=== PATIENT | female | born 1965 | race Caucasian/White ===

== ENCOUNTER 2020-03-10 16:17 | Outpatient (CLI) | payer OTHER, SELFPAY ==
--- NOTE | ~2020-03-10 | MM_ITS ---
EXAMINATION: MM scrn tony implant BI w ashley HISTORY: Screening mammogram TECHNIQUE: Craniocaudal and mediolateral oblique 3-D tomosynthesis images with implant displacement a nd synthetic 2-D images were generated. Craniocaudal and mediolateral oblique views of the breasts wi thout implant displacement were obtained using full field digital mammography. CAD analysis was submi tted and interpreted. COMPARISON: Comparison to multiple prior studies sequentially, with oldest reviewed study dated 02/24. BREAST PARENCHYMAL COMPOSITION: There are scattered areas of fibroglandular density. FINDINGS: There are subpectoral silicone implants. There is no evidence of suspicious mass, calcifica tion, or architectural distortion to suggest malignancy in either breast. There has been no suspiciou s interval change. IMPRESSION: 1. No mammographic evidence of malignancy. 2. Recommend routine screening mammography in one year. BI-RADS Category 1: Negative Reviewed, dictated and finalized at location A.
== END 2020-03-10 16:18 | disposition home or self-care (01) ==
PROVIDERS: PCP Internal Medicine; Visit Provider Obstetrics & Gynecology Gynecology
DX: Z12.31 Encounter for screening mammogram for malignant neoplasm of breast (principal)
CPT/HCPCS: 77063; 77067

== ENCOUNTER → 2020-05-13 13:00 | Outpatient (CLI) | payer OTHER, SELFPAY ==
--- NOTE | ~2020-05-13 | MR_ITS ---
EXAMINATION: MR lumbar spine wo/w con DATE: 05/13/2020 13:51 INDICATION: Worsening chronic low back pain TECHNIQUE: Magnetic resonance imaging (MRI) of the lumbar spine was performed without intravenous con trast. Sequences included sagittal T2-weighted FSE, sagittal T2-weighted FS FSE, sagittal T1-weighted FSE, and axial T2-weighted FSE. COMPARISON: CT abdomen and pelvis dated 11/01/2017 FINDINGS: 1 mm retrolisthesis L2 on L3 and 2 mm retrolisthesis L3 on L4. There is a chronic Schmorl's node latonia g the posterior aspect of the inferior endplate of L1 with 3 mm associated retropulsion of the inferi or aspect of the posterior wall. A few additional smaller Schmorl's nodes in the lower thoracic and u pper lumbar spine. Vertebral body heights are normal. No acute fracture. Heterogeneous pattern of mix ed red and yellow marrow signal. More discrete T1 hyperintense hemangioma at L2. Moderate disc height loss at L1-L2. Mild disc height loss at L2-L3 through L5-S1. Annular fissure at L5-S1. The conus med ullaris terminates at L1-L2. There is normal signal in the caudal spinal cord. 2.3 cm T2 hyperintense nonenhancing right renal cyst. Paravertebral soft tissues are unremarkable. No abnormally enhancing lesions identified. The following disc levels are specifically discussed: T12-L1: Disc is minimally bulging. There is no facet joint osteoarthritis. There is no neural foramin al stenosis. There is no central canal stenosis. L1-L2: Disc is bulging along with the 3 mm retropulsion along the inferior endplate of L1. There is n ormal bilateral facet joint osteoarthritis. There is no neural foraminal stenosis. There is mild cent ral canal stenosis. L2-L3: Disc is bulging. There is no facet joint osteoarthritis. There is no neural foraminal stenosis . There is mild central canal stenosis. L3-L4: Disc is bulging. There is mild bilateral facet joint osteoarthritis. There is mild bilateral n eural foraminal stenosis. There is minimal central canal stenosis. L4-L5: Disc is minimally bulging. There is minimal left and mild to moderate right facet joint osteoa rthritis. There is mild right and minimal left neural foraminal stenosis. There is no central canal s tenosis. L5-S1: Near fissure and minimal right subarticular disc bulge. There is mild bilateral facet joint os teoarthritis. There is no neural foraminal stenosis. There is no central canal stenosis. IMPRESSION: 1. Mild to moderate lumbar spondylosis. Reviewed, dictated and finalized at location A. SETTLEMENT CLERK
[2020-05-13 13:25] LABS: Estimated Glomerular Filt Rate 57
== END ==
PROVIDERS: PCP Internal Medicine; Visit Provider Chiropractor
DX: M43.17 Spondylolisthesis, lumbosacral region (principal); N28.1 Cyst of kidney, acquired; M51.45 Schmorl's nodes, thoracolumbar region; M48.07 Spinal stenosis, lumbosacral region
CPT/HCPCS: 72158; A9577

== ENCOUNTER → 2020-07-24 14:17 | Outpatient (CLI) | payer BC, SELFPAY ==
--- NOTE | ~2020-07-24 | CT_ITS ---
EXAMINATION: CT soft tissue neck wo con EXAM DATE: 07/24/2020 14:36 INDICATION: Right anterior pulsating neck pain. TECHNIQUE: Spiral CT of the neck was performed without contrast. Axial, coronal and sagittal images were reviewed. The dose-length product (DLP) for this examination was 361.20 mGy-cm. The exposure was tailored according to patient size (auto mA exposure control), and iterative reconstruction (ASIR ) was used as additional dose reduction technique. There is no prior study for comparison. FINDINGS: Cystic thyroid nodule measuring 1.8 cm x 2.9 cm. The submandibular and parotid glands are symmetric. There is no cervical lymphadenopathy. There are no masses identified. The superior m ediastinum is unremarkable. The airway is unremarkable. Parapharyngeal and pre-glottic fat planes are preserved. Limited evaluation of cervical vessels on this noncontrast study. No carotid aneury sm. The orbits are unremarkable. Visualized sinuses and mastoid air cells are well aerated. Lung apices are clear. There is moderate cervical spondylosis. IMPRESSION: Cystic right thyroid nodule. Consider ultrasound for risk stratification. Reviewed, dictated and finalized at location A. NDANCE SECRETARY IMPRESSION: Cystic right thyroid nodule. Consider ultrasound for risk stratifi cation.
== END ==
PROVIDERS: PCP Internal Medicine; Visit Provider Internal Medicine
DX: M54.2 Cervicalgia (principal); E04.1 Nontoxic single thyroid nodule
CPT/HCPCS: 70490

== ENCOUNTER → 2020-07-29 12:51 | Outpatient (CLI) | payer BC, SELFPAY ==
--- NOTE | ~2020-07-29 | US_ITS ---
EXAMINATION: US thyroid EXAM DATE: 07/29/2020 13:31 INDICATION: E04.1 - Nontoxic single thyroid nodule. TECHNIQUE: Multiple grayscale and Doppler images of the thyroid were obtained (by a technologist who performed the scan) and subsequently reviewed. Individual nodules and recommendations may be reporte d in accordance with TI-RADS system as designated by the 2017 ACR White Paper TI-RADS committee. Dez elation is made to CT neck 07/24/2020. FINDINGS: The right thyroid lobe measures 4.6 x 1.5 x 1.9 cm, the left measuring 4.0 x 0.8 x 1.1 cm. Mildly het erogeneous thyroid echogenicity. There is a nodule in the mid and upper pole of the right thyroid lobe measuring 3.1 x 1.4 x 2.0 cm, s olid (2 points), isoechoic (1 point), wider than tall, smooth well defined margin, without echogenic foci, category TR3 for this nodule. There is a 5 mm left thyroid lobe nodule not likely clinically s ignificant. IMPRESSION: Right thyroid lobe 3 cm solid nodule; recommend ultrasound guided FNA. Reviewed, dictated and finalized at location B. MEDICARE IMPRESSION: Right thyroid lobe 3 cm solid nodule; recommend ultrasound guided F NA.
== END ==
PROVIDERS: PCP Internal Medicine; Visit Provider Internal Medicine
DX: E04.1 Nontoxic single thyroid nodule (principal)
CPT/HCPCS: 76536

== ENCOUNTER 2020-08-05 13:24 | Outpatient (CLI) | payer BC, SELFPAY ==
--- NOTE | ~2020-08-05 | US_ITS ---
EXAMINATION: US FNA w image guidance DATE: 08/05/2020 14:07 INDICATION: Right thyroid nodule. TECHNIQUE: The procedure and its benefits and risks were discussed with the patient. Risks specifically discusse d included bleeding. The patient verbalized understanding of the risks and agreed to proceed. The nec k was prepped and draped in the usual sterile manner. 1% lidocaine was used for local anesthesia. 5 passes were made with a 25G needle into the lesion under ultrasound guidance. There were no immedia te complications. The patient understood to call the ordering physician for results after a week and a half and verbalized that understanding. FINDINGS: Grayscale ultrasound images demonstrate needles advanced into a 3.2 cm nodule in right thyroid lobe f or biopsy. IMPRESSION: 1. Ultrasound-guided fine needle aspiration of a right thyroid nodule. Reviewed, dictated and finalized at location A. X RAY SERVICE TECHNICIAN
== END 2020-08-05 13:25 | disposition home or self-care (01) ==
PROVIDERS: PCP Internal Medicine; Visit Provider Internal Medicine
DX: E04.1 Nontoxic single thyroid nodule (principal)
CPT/HCPCS: 10005; 88173; 88305

== ENCOUNTER → 2020-10-07 11:55 | Outpatient (CLI) | payer BC, SELFPAY ==
--- NOTE | ~2020-10-07 | DEXA_ITS ---
Bone Density Report Name: Margie Rush Age: 55 Sex: Female Ethnicity: White Date of : 1965 Indication: postmenopausal; screening for osteoporosis; parental hip fracture; hysterectomy; Referring Provider: NILAY NGUYEN Study: Bone densitometry was performed. Exam Date: October 07, 2020 Accession number: [id number] Bone Density: Region BMD T-score Z-score Classification AP Spine (L1-L4) 0.846 -1.8 -0.6 Osteopenia Femoral Neck (Left) 0.646 -1.8 -0.7 Osteopenia Total Hip (Left) 0.802 -1.2 -0.3 Osteopenia Femoral Neck (Right) 0.664 -1.7 -0.5 Osteopenia Total Hip (Right) 0.784 -1.3 -0.5 Osteopenia Total Hip Mean 0.793 -1.3 -0.4 Osteopenia World Health Organization criteria for BMD impression classify patients as: Normal (T-score at or above -1.0), Osteopenia (T-score between -1.0 and -2.5), or Osteoporosis (T-score at or below -2.5). 10-year Fracture Risk(1): Major Osteoporotic Fracture 14% Hip Fracture 0.9% Reported Risk Factors: [place] (), Neck BMD=0.646, BMI=20.8, parental fracture (1) FRAX(R) Version 3.08. Fracture probability calculated for an untreated patient. Fracture probability may be lower if the patient has received treatment. Clinical Information Provided by Patient: Parent has had a hip fracture Has the following medical conditions: Hysterectomy Patient maximum height was 66 Menopause Age: 36 Drinks caffeinated beverages Onset of menses at age 13 Number of children 2 Impression: The patient has low bone mass, based on the Total Spine T-score. The patient has an estimated ten-year risk of hip fracture of 0.9% and an estimated ten-year risk of major fracture of 14%, based on the WHO FRAX algorithm. The patient has risk factors, including: parental hip fracture. Discussion: BONE DENSITY IS LOW AT ONE OR MORE SKELETAL SITES. This patient's lowest T-score is low at one or more skeletal sites. It meets the World Health Organization's (WHO) criteria for ?low bone mass? (T-score between -1.0 and -2.5). The patient's 10-year risk of fracture as calculated by FRAX is less than the threshold where pharmacological therapy is recommended by the National Osteoporosis Foundation (NOF). However, all treatment decisions require clinical judgment and consideration of individual patient factors, including patient preferences, comorbidities, previous drug use, risk factors not captured in the FRAX model (e.g., frailty, falls, vitamin D deficiency, increased bone turnover, interval significant decline in bone density) and possible under or overestimation of fracture risk by FRAX. The patient should follow a healthful lifestyle (good nutrition with adequate calcium and vitamin D, and appropriate weight-bearing exercise). Follow-Up: Consider repeating this study in 2 to 3 years to reas
== END ==
PROVIDERS: PCP Internal Medicine; Visit Provider Obstetrics & Gynecology Gynecology
DX: Z78.0 Asymptomatic menopausal state (principal); M85.88 Other specified disorders of bone density and structure, other site; M85.852 Other specified disorders of bone density and structure, left thigh; M85.851 Other specified disorders of bone density and structure, right thigh
CPT/HCPCS: 77080

== ENCOUNTER 2021-05-12 14:49 | Outpatient (CLI) | payer BC, SELFPAY ==
--- NOTE | ~2021-05-12 | MM_ITS ---
EXAMINATION: MM scrn tony implant BI w ashley HISTORY: Screening mammogram TECHNIQUE: Craniocaudal and mediolateral oblique 3-D tomosynthesis images with implant displacement a nd synthetic 2-D images were generated. Craniocaudal and mediolateral oblique views of the breasts wi thout implant displacement were obtained using full field digital mammography. CAD analysis was submi tted and interpreted. COMPARISON: Comparison to multiple prior studies sequentially, with oldest reviewed study dated 12/24. BREAST PARENCHYMAL COMPOSITION: Breast composed of scattered areas of fibroglandular density FINDINGS: There is no evidence of suspicious mass, calcification, or architectural distortion to sugg est malignancy in either breast. There has been no suspicious interval change. IMPRESSION: 1. No mammographic evidence of malignancy. 2. Recommend routine screening mammography in one year. BI-RADS Category 1: Negative Reviewed, dictated and finalized at location A. WILL REPRESENTATIVE
== END 2021-05-12 14:50 | disposition home or self-care (01) ==
PROVIDERS: PCP Internal Medicine; Visit Provider Obstetrics & Gynecology Gynecology
DX: Z12.31 Encounter for screening mammogram for malignant neoplasm of breast (principal)
CPT/HCPCS: 77063; 77067

== ENCOUNTER → 2022-01-26 12:59 | Outpatient (CLI) | payer BC, SELFPAY ==
--- NOTE | ~2022-01-26 | MR_ITS ---
EXAMINATION: MR lumbar spine wo con DATE: 01/26/2022 13:31 INDICATION: Left-sided low back pain. TECHNIQUE: Magnetic resonance imaging (MRI) of the lumbar spine was performed without intravenous con trast. Sequences included sagittal T2-weighted FSE, sagittal T2-weighted FS FSE, sagittal T1-weighted FSE, and axial T2-weighted FSE. COMPARISON: Lumbar spine MRI 05/13/2010 FINDINGS: There is 3 degrees dextrocurvature of lumbar spine. There are Schmorl's nodes at most level s. There is mildly decreased disc height from L1-L2 through L3-L4. The distal spinal cord signal inte nsity is normal. The conus medullaris is at L1. There is a 2.2 cm cyst in right kidney. The following disc levels are specifically discussed: L1-L2: The disc is bulging. There is no facet joint osteoarthritis. There is no neural foraminal sten osis. There is mild central canal stenosis. L2-L3: The disc is bulging. There is no facet joint osteoarthritis. There is mild bilateral neural fo raminal stenosis. There is mild central canal stenosis. L3-L4: The disc is bulging. There is mild bilateral facet joint osteoarthritis. There is mild bilater al neural foraminal stenosis. There is mild central canal stenosis. L4-L5: The disc is bulging. There is severe right and moderate left facet joint osteoarthritis. There is mild right neural foraminal stenosis. There is no central canal stenosis. L5-S1: The disc does not extend beyond the endplate margin. An annular fissure is noted. There is mil d bilateral facet joint osteoarthritis. There is no neural foraminal stenosis. There is no central ca nal stenosis. IMPRESSION: 1. Mild lumbar spondylosis, stable from 05/13/2020. Reviewed, dictated and finalized at location A.
== END ==
PROVIDERS: PCP Internal Medicine; Visit Provider Orthopaedic Surgery
DX: M47.817 Spondylosis without myelopathy or radiculopathy, lumbosacral region (principal); M48.07 Spinal stenosis, lumbosacral region; N28.1 Cyst of kidney, acquired
CPT/HCPCS: 72148

== ENCOUNTER → 2022-04-26 13:12 | Outpatient (CLI) | payer BC, SELFPAY ==
--- NOTE | ~2022-04-26 | XR_ITS ---
EXAMINATION: XR chest 2V 04/26/2022 13:20 INDICATION: Shortness of breath and cough PROCEDURE: 2 view chest COMPARISON: No prior studies for comparison. FINDINGS: The lungs are clear. The cardiomediastinal silhouette is within normal limits. There are no pleural effusions. There is no pneumothorax suspected. IMPRESSION: 1: NO ACUTE CARDIOPULMONARY DISEASE. Reviewed, dictated and finalized at location B. ICATION INTEGRATOR
== END ==
PROVIDERS: PCP Internal Medicine; Visit Provider Nurse Practitioner
DX: U07.1 COVID-19 (principal); R05.9 Cough, unspecified; R06.02 Shortness of breath
CPT/HCPCS: 71046

== ENCOUNTER 2022-07-06 08:57 | Outpatient (CLI) | payer BC, SELFPAY ==
--- NOTE | ~2022-07-06 | MM_ITS ---
EXAMINATION: MM scrn tony implant BI w ashley HISTORY: Screening mammogram TECHNIQUE: Craniocaudal and mediolateral oblique 3-D tomosynthesis images with implant displacement a nd synthetic 2-D images were generated. Craniocaudal and mediolateral oblique views of the breasts wi thout implant displacement were obtained using full field digital mammography. CAD analysis was submi tted and interpreted. COMPARISON: Comparison to multiple prior studies sequentially, with oldest reviewed study dated 12/24. BREAST PARENCHYMAL COMPOSITION: There are scattered areas of fibroglandular density. FINDINGS: There is no evidence of suspicious mass, calcification, or architectural distortion to sugg est malignancy in either breast. There has been no suspicious interval change. IMPRESSION: 1. No mammographic evidence of malignancy. 2. Recommend routine screening mammography in one year. BI-RADS Category 1: Negative Reviewed, dictated and finalized at location A. TRAINER
== END 2022-07-06 08:58 | disposition home or self-care (01) ==
LOC: ANHIMG 08:59
PROVIDERS: PCP Internal Medicine; Visit Provider Obstetrics & Gynecology Gynecology
DX: Z12.31 Encounter for screening mammogram for malignant neoplasm of breast (principal); Z98.82 Breast implant status
CPT/HCPCS: 77063; 77067

== ENCOUNTER → 2022-10-12 08:53 | Outpatient (CLI) | payer BC, SELFPAY ==
--- NOTE | ~2022-10-12 | DEXA_ITS ---
Bone Density Report Name: JODY HEAD Age: 57 Sex: Female Ethnicity: White Date of : 1965 Indication: osteopenia; monitoring treatment; parental hip fracture; hysterectomy; postmenopausal Referring Provider: NILAY NGUYEN Study: Bone densitometry was performed. Exam Date: October 12, 2022 Accession number: [id number] Bone Density: Region BMD T-score Z-score Classification AP Spine (L1-L4) 0.859 -1.7 -0.3 Osteopenia Femoral Neck (Left) 0.683 -1.5 -0.2 Osteopenia Total Hip (Left) 0.809 -1.1 -0.2 Osteopenia Femoral Neck (Right) 0.675 -1.6 -0.3 Osteopenia Total Hip (Right) 0.788 -1.3 -0.3 Osteopenia Total Hip Mean 0.799 -1.2 -0.3 Osteopenia World Health Organization criteria for BMD impression classify patients as: Normal (T-score at or above -1.0), Osteopenia (T-score between -1.0 and -2.5), or Osteoporosis (T-score at or below -2.5). 10-year Fracture Risk: FRAX not reported because: Treated for osteoporosis Previous Exams: Region Exam Age BMD T-score BMD Change BMD Change Date g/cm2 vs Baseline vs Previous AP Spine(L1-L4) 10/12/2022 57 0.859 -1.7 0.013 0.013 10/07/2020 55 0.846 -1.8 Total Hip(Left) 10/12/2022 57 0.809 -1.1 0.007 0.007 10/07/2020 55 0.802 -1.2 Total Hip(Right) 10/12/2022 57 0.788 -1.3 0.004 0.004 10/07/2020 55 0.784 -1.3 *Denotes significance at 95% confidence level, LSC for AP Spine = 0.022 g/cm2, LSC for Total Hip = 0.027 g/cm2 Clinical Information Provided by Patient: Parent has had a hip fracture Is being treated for osteoporosis Has used the following medications: Fosamax (i.e. alendronate), HRT (i.e. estrogen/hormone therapy), Vitamin D, Calcium Has the following medical conditions: Hysterectomy Patient maximum height was 66 Menopause Age: 36 Drinks caffeinated beverages Onset of menses at age 13 Number of children 2 Impression: The patient has low bone mass, based on the Total Spine T-score. The patient has risk factors, including: parental hip fracture. No significant bone loss was observed. Discussion: PATIENT UNDER TREATMENT WITH NO SIGNIFICANT BMD LOSS SINCE LAST EXAM. In an untreated patient, BMD typically declines with age. A lack of decline or gain is usually a sign that treatment is efficacious and fracture risk is reduced. It is important to ask patients whether they are taking their medications and to encourage continued and appro
== END ==
PROVIDERS: PCP Internal Medicine; Visit Provider Obstetrics & Gynecology Gynecology
DX: Z78.0 Asymptomatic menopausal state (principal); M85.88 Other specified disorders of bone density and structure, other site; M85.852 Other specified disorders of bone density and structure, left thigh; M85.851 Other specified disorders of bone density and structure, right thigh
CPT/HCPCS: 77080

== ENCOUNTER → 2023-04-17 06:57 | Outpatient (CLI) | payer BC, SELFPAY ==
--- NOTE | ~2023-04-17 | MR_ITS ---
MRI of the right ankle Clinical history: Lateral instability Technique: Coronal proton-density and proton-density fat-sat images, axial proton-density and proton- density fat-sat images, and sagittal proton-density and proton-density fat-sat images were acquired. Findings: Syndesmotic ligaments are intact. Anterior and posterior talofibular ligaments, and calcane ofibular ligament are intact. Deltoid ligament is intact. Medial flexor tendons, peroneal tendons, anterior extensor tendons, and Achilles tendon are intact. There is no osteochondral lesion of the talar dome. There is focal subchondral cystic change in the m edial cuneiform. No other bone marrow signal abnormality seen. Remaining joint spaces are unremarkabl e. No joint effusion evident. Plantar fascia is intact. No soft tissue mass or fluid collection seen. There is normal signal in the sinus Tarsi. Impression: No significant abnormality seen. Reviewed, dictated and finalized at [facility]. MA DOCTOR Impression: No significant abnormality seen.
== END ==
PROVIDERS: PCP Family Medicine; Visit Provider Podiatrist Foot & Ankle Surgery
DX: S93.411A Sprain of calcaneofibular ligament of right ankle, initial encounter (principal)
CPT/HCPCS: 73721

== ENCOUNTER 2023-08-01 00:26 | Day surgery (SDC) | payer BC, SELFPAY ==
[2023-05-04 13:10] VITALS: BMI 22.0
[2023-07-06 13:40] VITALS: BMI 21.2
--- NOTE | 2023-07-28 12:46 | SUR.PREOP ---
Patient called regarding upcoming procedure. Reviewed preop instructions, appointment times, and procedure prep.
--- NOTE | 2023-07-31 14:41 | PM.HPGS ---
History of Present Illness History of Present Illness Consent: Risks, benefits, and alternatives have been discussed and questions answered. Patient agrees to proceed with procedure. Chief complaint: neoplasm screening Narrative: Margie Rush is a 58 year old female who is referred for colon cancer screening. Review of Systems Review of Systems: All systems reviewed & are unremarkable except as noted in HPI and below PMFSH Past Medical History Medical History Acute meniscal tear of knee Basal cell carcinoma C. difficile diarrhea Ganglion cyst of wrist Hormone replacement therapy (HRT) Hx of skin cancer, basal cell Osteopenia Postmenopausal Tendinitis of wrist Vitamin D deficiency Surgical History Surgical History H/O wrist surgery H/O: hysterectomy History of foot surgery Hx of shoulder surgery Family History Family History Other Family history of arthritis Family history of malignant neoplasm Family history of seizure disorder Hypertension Social History Social History Smoking status: Never smoker Second hand tobacco smoke exposure: No Alcohol intake: current Alcohol use details: socially Substance use: never Substance use type: does not use Lack of Transportation: No Lack of Food: Never True Current Housing: I Have Housing Concerned About Future Housing: No Difficulty Paying Gas/Electric Bills: No Difficulty Paying for Meds: No Currently Unemployed: No Education: High School Diploma/GED Difficulty w/ Childcare or Family Care: No Living arrangements: with family Spiritual care concerns: No Meds Home Medications and Allergies Home Medications Medication Instructions Recorded Confirmed Type calcium carbonate 500 mg calcium 500 mg PO DAILY 07/31/19 08/01/23 History (1,250 mg) tablet (Calcium 500) estradiol 0.5 mg tablet (Estrace) 0.5 mg PO DAILY 07/31/19 08/01/23 History diclofenac sodium 1 % topical gel 2 g topical QID 90 days #300 grams 03/31/23 08/01/23 Rx lorazepam 0.5 mg tablet 0.5 mg PO QHS PRN sleep #90 tabs 05/01/23 08/01/23 Rx Allergies Allergy/AdvReac Type Severity Reaction Status Date / Time No Known Allergies Allergy Verified 08/01/23 07:12 Exam Resp: Auscultation: clear to auscultation bilaterally Cardio: Rate: regular rate Rhythm: regular rhythm GI: GI Palp: Yes Soft to palpation and No Tenderness to palpation present (GI) Assessment and Plan Assessment and plan (1) Screening for colon cancer: Code(s): Z12.11 - Encounter for screening for malignant neoplasm of colon Status: Acute Assessment and Plan: Colonoscopy with possible biopsy or polypectomy or cautery or injection of substances.
[2023-08-01 07:13] VITALS: BP 106/69; PULSE 85; RESP 16; TEMP 36.1; O2SAT 100
[2023-08-01] MEDS: LACTATED RINGERS 1,000 ML 150 ML IV CONT (07:18)
--- NOTE | 2023-08-01 07:42 | WPDANESEPPF ---
Anes - Initial Pre Proc Eval Procedure: Operation Date: 08/01/23 08:30 Proposed Procedures p Screening Colonoscopy - Chidi Perez MD Date/Time: 08/01/23 07:42 Surgeon: Chidi Perez MD Pre Op Diagnosis: neoplasm screening Patient Data Age: 58 Gender: F Height: 1.65 m Weight: 55.4 kg Last Vital Signs Temp 36.1 C L 08/01/23 07:13 Pulse 85 08/01/23 07:13 Resp 16 08/01/23 07:13 BP 106/69 08/01/23 07:13 Pulse Ox 100 08/01/23 07:13 O2 Del Method Room Air 08/01/23 07:13 Allergies Allergy/AdvReac Type Severity Reaction Status Date / Time No Known Allergies Allergy Verified 08/01/23 07:12 Home Medications Medication Instructions Recorded Confirmed Type calcium carbonate 500 mg calcium 500 mg PO DAILY 07/31/19 08/01/23 History (1,250 mg) tablet (Calcium 500) estradiol 0.5 mg tablet (Estrace) 0.5 mg PO DAILY 07/31/19 08/01/23 History diclofenac sodium 1 % topical gel 2 g topical QID 90 days #300 grams 03/31/23 08/01/23 Rx lorazepam 0.5 mg tablet 0.5 mg PO QHS PRN sleep #90 tabs 05/01/23 08/01/23 Rx Patient hx anesthesia problems: other (hx of veneer damage with intubation) Family hx anesthesia problems: none Results Review: All pre-operative results and documents have been reviewed as part of the pre-operative evaluation. [facility] Past Medical History Medical History Acute meniscal tear of knee Basal cell carcinoma C. difficile diarrhea Ganglion cyst of wrist Hormone replacement therapy (HRT) Hx of skin cancer, basal cell Osteopenia Postmenopausal Tendinitis of wrist Vitamin D deficiency Surgical History Surgical History H/O wrist surgery H/O: hysterectomy History of foot surgery Hx of shoulder surgery Family History Family History Other Family history of arthritis Family history of malignant neoplasm Family history of seizure disorder Hypertension Social History Social History Smoking status: Never smoker Second hand tobacco smoke exposure: No Alcohol intake: current Alcohol use details: socially Substance use: never Substance use type: does not use Lack of Transportation: No Lack of Food: Never True Current Housing: I Have Housing Concerned About Future Housing: No Difficulty Paying Gas/Electric Bills: No Difficulty Paying for Meds: No Currently Unemployed: No Education: High School Diploma/GED Difficulty w/ Childcare or Family Care: No Living arrangements: with family Spiritual care concerns: No Anes - Eval Final PreProcedure Day of Procedure 08/01/23 07:42 Patient weight: normal Heart: regular rate and rhythm Lungs: clear to auscultation Airway: Mallampati scale class II and other (large overbite, veneers) Neurological: alert and oriented Last oral intake: >/= 8 hours ASA classification: II Emergent: no Anesthetic plan: proceed Anesthesia type and monitoring: general GIVS and standard monitoring Results Review: All pre-operative results and documents have been reviewed as part of the pre-operative evaluation. Informed Consent: The patient's anesthetic plan and its attendant risks and benefits were discussed with the patient/family/POA. Questions were solicited and answers provided to the satisfaction of the patient/family/POA.
[2023-08-01] MEDS: SIMETHICONE ORAL SUSPENSION 20 MG/0.3 ML 30 ML BOTTLE 0.6 ML IRRIGATION (08:38)
[2023-08-01 08:48] VITALS: BP 98/64; PULSE 80; RESP 20; O2SAT 100
[2023-08-01 08:58] VITALS: BP 100/59; PULSE 60; RESP 16; O2SAT 100
[2023-08-01 09:08] VITALS: BP 113/58; PULSE 68; RESP 18; O2SAT 100
== END 2023-08-01 09:12 | disposition home or self-care (01) ==
PROVIDERS: PCP Nurse Practitioner; Visit Provider Internal Medicine Gastroenterology
PROC: 0DJD8ZZ Inspection of Lower Intestinal Tract, Via Natural or Artificial Opening Endoscopic (ICD-10-PCS; CPT 45378; principal; 2023-08-01 08:30)
DX: Z12.11 Encounter for screening for malignant neoplasm of colon (principal); K64.8 Other hemorrhoids
CPT/HCPCS: 45378; J2704; J7120

== ENCOUNTER 2023-09-01 09:33 | Outpatient (CLI) | payer BC, SELFPAY ==
--- NOTE | ~2023-09-01 | MR_ITS ---
EXAMINATION: MR lumbar spine wo con DATE: 09/01/2023 13:14 INDICATION: Low back pain, unspecified. TECHNIQUE: Magnetic resonance imaging (MRI) of the lumbar spine was performed without intravenous con trast. Sequences included sagittal T2-weighted FSE, sagittal T2-weighted FS FSE, sagittal T1-weighted FSE, and axial T2-weighted FSE. COMPARISON: Lumbar spine MRI 01/26/2022 FINDINGS: There is 3 degrees dextrocurvature of lumbar spine. Vertebral body heights are normal. Ther e are Schmorl's nodes at multiple levels. There is mildly decreased disc height at L1-L2, L2-L3, and L3-L4. The distal spinal cord signal intensity is normal. The conus medullaris is at L1. There is a 2 .4 cm cyst in right kidney. The following disc levels are specifically discussed: L1-L2: The disc is bulging. There is mild left facet joint osteoarthritis. There is no neural foramin al stenosis. There is mild central canal stenosis. L2-L3: The disc is bulging. There is no facet joint osteoarthritis. There is mild bilateral neural fo raminal stenosis. There is mild central canal stenosis. L3-L4: The disc is bulging. There is severe bilateral facet joint osteoarthritis. There is mild bilat eral neural foraminal stenosis. There is mild central canal stenosis. L4-L5: The disc is bulging and has an annular fissure. There is severe bilateral facet joint osteoart hritis. There is mild bilateral neural foraminal stenosis. There is no central canal stenosis. L5-S1: There is a central protrusion with annular fissure. There is severe bilateral facet joint oste oarthritis. There is no neural foraminal stenosis. There is mild central canal stenosis. IMPRESSION: 1. Mild lumbar spondylosis, stable from 01/26/2022. Reviewed, dictated and finalized at location A.
== END 2023-09-01 09:34 ==
LOC: MICIMG 09:34
PROVIDERS: PCP Nurse Practitioner; Visit Provider Nurse Practitioner
DX: M43.06 Spondylolysis, lumbar region (principal)
CPT/HCPCS: 72148

== ENCOUNTER 2023-09-11 12:47 | Outpatient (CLI) | payer BC, SELFPAY ==
--- NOTE | ~2023-09-11 | MR_ITS ---
EXAMINATION: MR pelvis wo con DATE: 09/11/2023 13:19 INDICATION: Chronic low back pain. Chronic pain in pelvis. TECHNIQUE: Magnetic resonance imaging (MRI) of the pelvis was performed without intravenous contrast. COMPARISON: Left hip MRI 04/30/2019, lumbar spine MRI 09/01/2023 FINDINGS: Bone alignment is normal. No fracture. There is mild lumbar spondylosis. There is mild osteoarthritis of the hips. The gluteus minimus and gluteus medius tendons are normal. The hamstring tendon origins are normal. The iliopsoas tendons are normal. IMPRESSION: 1. Mild osteoarthritis of the hips. 2. Mild lumbar spondylosis. Reviewed, dictated and finalized at location A.
== END 2023-09-11 12:48 ==
PROVIDERS: PCP Nurse Practitioner
DX: M25.562 Pain in left knee (principal); G89.29 Other chronic pain; M16.0 Bilateral primary osteoarthritis of hip; M43.06 Spondylolysis, lumbar region
CPT/HCPCS: 72195

== ENCOUNTER 2023-11-28 14:12 | Outpatient (CLI) | payer BC, SELFPAY ==
--- NOTE | ~2023-11-28 | MM_ITS ---
EXAMINATION: MM scrn tony implant BI w ashley HISTORY: Screening mammogram TECHNIQUE: Craniocaudal and mediolateral oblique 3-D tomosynthesis images with implant displacement a nd synthetic 2-D images were generated. Craniocaudal and mediolateral oblique views of the breasts wi thout implant displacement were obtained using full field digital mammography. CAD analysis was submi tted and interpreted. COMPARISON: 07/06/2022, 05/12/2021 BREAST PARENCHYMAL COMPOSITION: There are scattered areas of fibroglandular density. FINDINGS: There is no evidence of suspicious mass, calcification, or architectural distortion to sugg est malignancy in either breast. There has been no suspicious interval change. IMPRESSION: No mammographic evidence of malignancy. Recommend routine screening mammography in one year. BI-RADS Category 1: Negative Reviewed, dictated and finalized at [facility].
== END 2023-11-28 14:13 | disposition home or self-care (01) ==
LOC: ANHIMG 14:14
PROVIDERS: PCP Nurse Practitioner; Visit Provider Obstetrics & Gynecology Gynecology
DX: Z12.31 Encounter for screening mammogram for malignant neoplasm of breast (principal)
CPT/HCPCS: 77063; 77067

== ENCOUNTER 2024-10-18 12:16 | Outpatient (CLI) | payer BC, SELFPAY ==
--- NOTE | ~2024-10-18 | DEXA_ITS ---
Bone Density Report Name: JODY HEAD Age: 59 Sex: Female Ethnicity: White Date of : 1965 Indication: osteopenia; Referring Provider: NILAY NGUYEN Study: Bone densitometry was performed. Exam Date: October 18, 2024 Accession number: [id number] Bone Density: Region BMD T-score Z-score Classification AP Spine(L1-L4) 0.873 -1.6 -0.1 Osteopenia Femoral Neck (Left) 0.636 -1.9 -0.6 Osteopenia Total Hip (Left) 0.771 -1.4 -0.4 Osteopenia Femoral Neck (Right) 0.668 -1.6 -0.3 Osteopenia Total Hip (Right) 0.765 -1.4 -0.4 Osteopenia Total Hip Mean 0.768 -1.4 -0.4 Osteopenia World Health Organization criteria for BMD impression classify patients as: Normal (T-score at or above -1.0), Osteopenia (T-score between -1.0 and -2.5), or Osteoporosis (T-score at or below -2.5). 10-year Fracture Risk(1): Major Osteoporotic Fracture 8.9% Hip Fracture 1.2% Reported Risk Factors: [place] (), Neck BMD=0.636, BMI=21.4 (1) FRAX(R) Version 3.08. Fracture probability calculated for an untreated patient. Fracture probability may be lower if the patient has received treatment. Previous Exams: -- Region Exam Age BMD T-score BMD Change BMD Change Date g/cm2 vs Baseline vs Previous -- AP Spine (L1-L4) 10/18/2024 59 0.873 -1.6 3.2%* 1.6% 10/12/2022 57 0.859 -1.7 1.6% 1.6% 10/07/2020 55 0.846 -1.8 Total Hip(Left) 10/18/2024 59 0.771 -1.4 -3.8%* -4.7%* 10/12/2022 57 0.809 -1.1 0.9% 0.9% 10/07/2020 55 0.802 -1.2 Total Hip(Right) 10/18/2024 59 0.765 -1.4 -2.4% -2.9% 10/12/2022 57 0.788 -1.3 0.5% 0.5% 10/07/2020 55 0.784 -1.3 -- *Denotes significance at 95% confidence level, LSC for AP Spine = 0.022 g/cm2, LSC for Total Hip = 0.027 g/cm2 Impression: The patient has low bone mass, based on the Left Femoral Neck T-score. The patient has an estimated ten-year risk of hip fracture of 1.2% and an estimated ten-year risk of major fracture of 8.9%, based on the WHO FRAX algorithm. The BMD for the Total Hip(Left) decreased, changing by -4.7% since the last DXA exam. Discussion: BONE DENSITY IS LOW AT ONE OR MORE SKELETAL SITES. This patient's lowest T-score is low at one or more skeletal sites. It meets the World Health Organization's (WHO) criteria for “low bone mass” (T-score between -1.0 and -2.5). The patient's 10-year risk of fracture as calculated by FRAX is less than the threshold where pharmacological therapy is recommended by the National Osteoporosis Foundation (NOF). However, all treatment decisions require clinical judgment and consideration of individual patient factors, including patient preferences, comorbidities, previous drug use, risk factors not captured in the FRAX model (e.g., frailty, falls, vitamin D deficiency, increased bone turnover, interval significant decline in bone density) and possible under or overestimation of fracture risk by FRAX. The patient should follow a healthful lifestyle (good nutrition with adequate calcium and vitamin D, and appropriate weight-bearing exercise). Follow-Up: Consider repeating this study in 2 years to reassess this patient's status, or sooner if there is some new clinical indication. Reported by: NGOZI on 10/23/2024 12:30:00 PM. Reviewed, dictated and finalized at location A.
== END 2024-10-18 12:17 | disposition home or self-care (01) ==
LOC: MICIMG 10-19 12:18
PROVIDERS: PCP Family Medicine; Visit Provider Obstetrics & Gynecology Gynecology
DX: M85.89 Other specified disorders of bone density and structure, multiple sites (principal); Z78.0 Asymptomatic menopausal state
CPT/HCPCS: 77080

== ENCOUNTER 2025-04-17 09:49 | Outpatient (CLI) | payer BC, SELFPAY ==
--- NOTE | ~2025-04-17 | XR_ITS ---
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 Findings: No acute fracture or malalignment. No significant degenerative changes. Soft tissues unremarkable. Impression: No acute fracture or malalignment. Reviewed, dictated and finalized at location P. HATCHERY INSPECTOR Impression: No acute fracture or malalignment.
== END 2025-04-17 09:50 | disposition home or self-care (01) ==
LOC: MICIMG 09:51
PROVIDERS: PCP Family Medicine; Visit Provider Family Medicine
DX: M25.521 Pain in right elbow (principal)
CPT/HCPCS: 73070